=== PATIENT | female | born 1945 | race Caucasian/White ===

== ENCOUNTER 2023-03-03 17:48 | Emergency (ER) | payer MEDICARE, SELFPAY ==
[2023-03-03 17:59] VITALS: BP 142/75; PULSE 66; RESP 16; TEMP 36.8; O2SAT 96
--- NOTE | 2023-03-03 18:06 | ED.FEMALEGU ---
HPI - Female Genitourinary General Chief complaint: Urogenital-Female Stated complaint: Urinary Problem Time Seen by Provider: 03/03/23 18:05 Source: patient Mode of arrival: ambulatory Limitations: no limitations History of Present Illness HPI Narrative: Karen is a 77-year-old female patient presenting to the clinic today with complaints of a possible UTI. She reports she has been having urinary frequency, urgency, and incontinence x1 week. She denies any fever or chills. She denies any abdominal pain or back pain. Related Data Home Medications Medication Instructions Recorded Confirmed empagliflozin 25 mg tablet 25 mg PO DAILY 03/03/23 03/03/23 (Jardiance) fluticasone 250 mcg-salmeterol 50 1 inh inhalation BID 03/03/23 03/03/23 mcg/dose blistr powdr for inhalation montelukast 10 mg tablet 10 mg PO DAILY 03/03/23 03/03/23 olmesartan 20 1 tablet PO DAILY 03/03/23 03/03/23 mg-hydrochlorothiazide 12.5 mg tablet primidone 50 mg tablet See Rx Instructions .Route .COMPLEX 03/03/23 03/03/23 propranolol 120 mg capsule,24 120 mg PO DAILY 03/03/23 03/03/23 hr,extended release Allergies Allergy/AdvReac Type Severity Reaction Status Date / Time No Known Allergies Allergy Verified 03/03/23 18:14 Review of Systems Review of Systems: Pertinent positives per HPI. Patient denies any fever, chills, rash, headache, visual changes, dizziness, cough, runny nose, sore throat, shortness of breath, chest pain, palpitations, nausea, vomiting, diarrhea, constipation, abdominal pain. PMFSH Comments At the time of my signature, I reviewed and agree with the nursing past medical, surgical, social, and family history. There is no relevant family history pertinent to the patient complaint. Exam Narrative: General: Well-developed, morbid obese, in no apparent distress. Head: Normocephalic, atraumatic. Cardio: Regular rate and rhythm, s1 and s2 normal, no murmur appreciated. Resp: Clear to auscultation bilaterally, no rhonchi, rales, wheezing or rubs. Abdomen: Soft, pliable, bowel sounds present in all quadrants, non-tender to palpation, no organomegly, no CVAT tenderness. Course Course Emergency Course: Portions of this record may have been created with voice recognition software. Level of Care: Express Care Visit Vital Signs Vital signs: Vital signs reviewed MDM - Female Genitourinary MDM Narrative Medical decision making narrative: At the time of visit patient is resting on the exam chair. Patient is nontoxic appearing. UA dip was performed and is positive for bacteria, blood, glucose, and nitrates. Blood sugar was obtained and was 81 in the clinic today. Patient denies any history diabetes. Supportive measures were discussed with the patient she voiced understanding of discharge instructions. Patient does have kidney disease so I will give her Augmentin 500 twice a day. Return precautions were reviewed Differential Diagnosis Differential diagnosis: Likely urinary tract infection and cystitis Discharge Plan Discharge Clinical Impression: UTI (urinary tract infection) Patient Disposition: Home, Self-Care Condition: Stable Instructions: Antibiotic Form, Urinary Tract Infection in Older Adults (ED) Additional Instructions: UA positive for leukocytes, nitrates, blood, and 2+ glucose. We will send for culture Blood sugar was 81 in the clinic today. Take Augmentin as prescribed Increase fluids and stay well hydrated Wipe front to back. May use wet wipes. Avoid tub baths If sexually active- pee before and after intercourse. Wear cotton panties Avoid tight clothing up against the genitals Follow up with your PCP in 1 week if symptoms persist. Prescriptions: New amoxicillin-pot clavulanate 500-125 mg tablet 1 tablet PO Q12H 7 Days Qty: 14 0RF No Action propranolol 120 mg capsule,extended release 24 hr 120 mg PO DAILY olmesartan-hydrochlorothia
[2023-03-03 19:16] LABS: Glucose Point of Care 81 mg/dl (65-105)
== END 2023-03-03 19:18 | disposition home or self-care (01) ==
PROVIDERS: Emergency Provider Nurse Practitioner Family; PCP Internal Medicine
DX: N39.0 Urinary tract infection, site not specified (principal); B96.20 Unspecified Escherichia coli [E. coli] as the cause of diseases classified elsewhere; I10 Essential (primary) hypertension; J45.909 Unspecified asthma, uncomplicated; M19.90 Unspecified osteoarthritis, unspecified site
CPT/HCPCS: 81003; 82948; 87077; 87086; 87186; 99213; G0463